=== PATIENT | female | born 1960 | race American Indian/Alaskan Native ===

== ENCOUNTER 2018-03-14 11:23 | Outpatient (CLI) | payer OTHER ==
--- NOTE | 2018-03-14 12:25 | XRay Report ---
LEFT SHOULDER RADIOGRAPHS INDICATION: Pain. COMPARISON: None similar at this institution. FINDINGS: Frontal and Y views of the left shoulder, 4 images demonstrate normal humeral head contour, well positioned against the glenoid. Possible osteopenia. Intact AC joint with mild degenerative spurring. Preserved scapular contour. Normal visualized soft tissues, left ribs and lung. CONCLUSION: No acute left shoulder radiographic abnormality with mild AC joint degenerative changes noted, as described. Thank you for the opportunity to participate in this patient's care.
--- NOTE | 2018-03-14 12:27 | XRay Report ---
LEFT KNEE RADIOGRAPHS INDICATION: Pain. COMPARISON: None similar. FINDINGS: AP and lateral left knee radiographs suggest old deformity or hypertrophic changes about the anterior tibial tuberosity. Otherwise intact knee articulation. Slight degenerative tibial spine prominence. No suprapatellar effusion. Possible ischemia. CONCLUSION: No acute left knee radiographic abnormality with few incidental findings, as above. Thank you for the opportunity to participate in this patient's care.
--- NOTE | 2018-03-14 12:31 | XRay Report ---
CERVICAL SPINE RADIOGRAPHS INDICATION: Pain. COMPARISON: None similar. FINDINGS: AP, open-mouth, lateral and attempted swimmer's views of the cervical spine, 4 images demonstrate dens partly obscured superiorly due to overlying skull. Normal remainder imaged dens with symmetric lateral masses. Few radiopaque dental material. Possible osteopenia. Intact craniocervical articulation on the lateral view with normal prevertebral soft tissues and airway. Cervical spine straightening, possibly positional versus spasm. Normal vertebral body stature and disc heights upto C4. Mild C5 and C6 degenerative spurring with C5-C6 disc narrowing noted. Further lower cervical spine not well seen. Clear imaged lung apices. CONCLUSION: C5-C6 degenerative changes and mild straightening noted without acute significant radiographic abnormality, as described. Please correlate. Thank you for the opportunity to participate in this patient's care.
--- NOTE | 2018-03-14 12:50 | XRay Report ---
LUMBAR SPINE RADIOGRAPHS INDICATION: Pain. COMPARISON: None similar. FINDINGS: AP and lateral lumbar spine radiographs demonstrate approximately 8mm anterolisthesis of L4 over L5 with moderate to severe L4-L5 disc narrowing. Grossly normal remainder vertebral body stature, alignment and disc heights. Lower thoracic spine degenerative spurring with T11-T12 disc degeneration and subtle vacuum phenomena also suspected. Nonobstructive bowel gas pattern. Intact SI joints. CONCLUSION: Lower lumbar and lower thoracic spine degenerative changes noted, as described. Please correlate. Thank you for the opportunity to participate in this patient's care.
== END 2018-03-14 11:24 | disposition home or self-care (01) ==
LOC: XRAY 11:23
PROVIDERS: ATTEND Rehabilitation Practitioner
DX: M47.816 Spondylosis without myelopathy or radiculopathy, lumbar region (principal); M47.814 Spondylosis without myelopathy or radiculopathy, thoracic region; M47.812 Spondylosis without myelopathy or radiculopathy, cervical region; M19.012 Primary osteoarthritis, left shoulder; M25.562 Pain in left knee
CPT/HCPCS: 72040; 72100